=== PATIENT | male | born 1975 | race Caucasian/White ===

== ENCOUNTER 2023-04-05 10:18 | Outpatient (AMB) | payer OTHER, SELFPAY ==
[2023-04-05 10:27] VITALS: BP 129/84; PULSE 70; BMI 25.8
--- NOTE | 2023-04-05 10:27 | A.OFFVIS_ITS ---
Intake Vital Signs 04/05/23 10:27 Height 5 ft 5 in Weight 155 lb BMI 25.8 BP 129/84 Blood Pressure Location Rt brachial Position Sitting Pulse 70 Intake Visit Reasons: Lipoma of neck Intake Note: Patient here for growth on post neck. Has been enlarging for the past 7yrs. Recently moved to area from [place]. C/o discomfort around neck and shoulder muscles . 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 He has had this approximately 6 years time. His increasing size, become more symptomatic. He wished to have removed. Patient presents here with his significant other. He has no other such lesions elsewhere. Incidentally has a left base of left index finger palmar aspects cyst Chart was reviewed patient evaluated [facility] Medical History (Updated 04/05/23 @ 10:30 by NAREN Austin) Hernia Social History (Updated 04/05/23 @ 10:31 by NAREN Austin) Alcohol intake: never Tobacco use type: Cigarette Cigarettes Per Day: 10 Physical Exam Vital Signs: Last Vital Signs Pulse 70 04/05/23 10:27 BP 129/84 04/05/23 10:27 BMI result Body Mass Index 25.8 Neck Other: Posterior midline neck approximately 7 x 5 cm mass consistent with either a massive GI lipoma or sebaceous cyst. No cervical periclavicular adenopathy. 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 All questions were answered. Arrangements will be made for this. Coding Level of Care Code New Pt Level 5 (86054) Diagnoses Lipomatosis gigantea E88.2
== END 2023-04-05 11:04 | disposition home or self-care (01) ==
PROVIDERS: PCP Internal Medicine; Referring Provider Internal Medicine; Visit Provider Surgery
DX: E88.2 Lipomatosis, not elsewhere classified (principal)
CPT/HCPCS: 99204

== ENCOUNTER → 2023-04-05 10:18 | Outpatient (BNVA) | payer OTHER, SELFPAY | PROVIDERS: PCP Internal Medicine; Referring Provider Internal Medicine; Visit Provider Surgery | DX: E88.2 Lipomatosis, not elsewhere classified (principal) | CPT/HCPCS: 99202 ==

== ENCOUNTER 2023-05-11 06:50 | Day surgery (SDC) | payer OTHER, SELFPAY ==
[2023-04-29 13:40] VITALS: BMI 25.8
--- NOTE | 2023-05-10 14:27 | MHC.SHP ---
Pre-Procedural Eval Section A Date of Service: 05/10/23 The patient is an INPATIENT: No Changes since office visit: No Cold of Flu in the past 2 weeks, No New Medical Problems, No Changes in Medication and No Patient answered all questions The History & Physical has been completed within 30 days and I have reviewed it.: Yes Section B Chief Complaint: Lipomatosis, not elsewhere classified Allergies: Allergies Allergy/AdvReac Type Severity Reaction Status Date / Time No Known Allergies Allergy Verified 04/05/23 10:29 Plan I have reviewed the history and physical and performed a pertinent physical examination on my patient. No changes have occurred unless specified. Time Spent With Patient Time: Total time managing care of this patient today ____ minutes.
[2023-05-11 07:16] VITALS: BP 121/77; PULSE 64; RESP 16; TEMP 37; O2SAT 96
--- NOTE | 2023-05-11 08:20 | HO.ANESPROP2 ---
HPI - Anesthesia Eval Consult details Narrative: 47 M for excision of neck mass smoker ,GERD PMFSH Active Problems Active Problems: All Active Problems (Updated 04/29/23 @ 13:33 by Ava Urban RN) Lipomatosis gigantea (Acute) Past Medical History Medical History (Updated 05/11/23 @ 07:08 by Abimbola Montes RN) Arrhythmia GERD (gastroesophageal reflux disease) Torn rotator cuff ADD (attention deficit disorder) PTSD (post-traumatic stress disorder) Anxiety Depression Hernia Functional capacity: independent ambulation Family History Family history of problems with anesthesia: No Surgical History Surgical History (Updated 04/29/23 @ 13:33 by Ava Urban RN) Hx of hernia repair History of Problems with Anesthesia: No Social History Social History (Updated 04/29/23 @ 13:34 by Ava Urban RN) Alcohol intake: never Patient Tobacco Use Status: Current everyday Tobacco user Tobacco use type: Cigarette Cigarette Packs Per Day: 0.5 Cigarettes Per Day: 10.0 Substance Use Type: Marijuana Meds Allergies Allergy/AdvReac Type Severity Reaction Status Date / Time No Known Allergies Allergy Verified 04/05/23 10:29 Home Medications Medication Instructions Recorded Confirmed Last Taken Type gabapentin 100 mg capsule 100 mg PO BEDTIME 04/05/23 04/29/23 05/11/23 History omeprazole 20 mg capsule,delayed 20 mg PO BID 04/05/23 04/29/23 05/11/23 History release Exam Exam Date and Time: May 11, 2023 0820 Height,Weight and Vital Signs: Height 5 ft 5 in Weight 70.307 kg Last Vital Signs Temp 98.6 F 05/11/23 07:16 Pulse 64 05/11/23 07:16 Resp 16 05/11/23 07:16 BP 121/77 05/11/23 07:16 Pulse Ox 96 05/11/23 07:16 O2 Del Method Room Air 05/11/23 07:16 Airway Mallampati Class: III Neck ROM: Full Loose/Missing/Broken Teeth: Yes (poor dentition , multiple chipped and missing ) Assessment and Plan Assessment Anesthesia Assessment: Anesthesia Plan Discussed and Chart Reviewed Final Anesthetic Review Family History of Problems with Anesthesia: No History of Problems with Anesthesia: No NPO: Yes ASA Class: II Final Preanesthetic Review: Meds/Allgs Chart Reviewed, Consent Obtained/Reviewed and Anes Risks/Benef Reviewed Patient Risk: Intermediate Procedure Risk: Intermediate Anesthetic Plan Anesthetic Plan: MAC: and Agree w/ Assess. and Plan Disposition: Standard PACU
--- NOTE | 2023-05-11 09:19 | W.PM.OPN ---
Operative Note Operative Note Date of Service: 05/11/23 Narrative: Preoperative diagnosis: [] Left posterior neck soft tissue mass Postop diagnosis; same Procedure [] wide local excision left posterior neck Surgeon: [] Keo Line Maintenance Supervisor: [] Type of Anesthesia: [] Mass Indication for surgery: [] Final specimen measured approximately 5 x 3 cm consistent with a large deep posterior left neck lipoma. Findings: [] Patient brought to the operating room, placed on operative table in supine position, after adequate level of MAC anesthesia was induced, patient was placed in the right lateral decubitus position. Left posterior neck was prepped and draped in usual sterile fashion. Proposed incision site was infiltrated with 1% lidocaine/0.5% Marcaine. A transverse incision was made over the mass in question and carried down through skin, subcutaneous tissue, cervical fascia where a large multilobulated mass consistent with a lipoma was uneventfully excised from the surrounding soft tissues using combination of blunt, sharp, and Bovie dissection. Specimen was sent to pathology. Wound was irrigated, and secured hemostasis. The wound Was closed in the following manner; interrupted inverted dermal 3-0 Vicryl sutures followed by Steri-Strips and sterile dressings were applied. Sponge, needle, instrument counts reported correct. Patient tolerated the procedure well and emerged anesthesia stable condition. EBL minimal
[2023-05-11 09:20] VITALS: BP 98/65; PULSE 65; RESP 16; TEMP 36.6; O2SAT 96
[2023-05-11 09:35] VITALS: BP 106/67; PULSE 66; RESP 16; TEMP 36.6; O2SAT 98
[2023-05-11 09:50] VITALS: BP 117/85; PULSE 67; RESP 20; TEMP 36.6; O2SAT 99
== END 2023-05-11 10:50 | disposition home or self-care (01) ==
PROVIDERS: PCP Internal Medicine; Visit Provider Surgery
PROC: (CPT 21552; principal; 2023-05-11 08:40)
DX: E88.2 Lipomatosis, not elsewhere classified (principal); I10 Essential (primary) hypertension; F98.8 Other specified behavioral and emotional disorders with onset usually occurring in childhood and adolescence; F41.9 Anxiety disorder, unspecified; F43.10 Post-traumatic stress disorder, unspecified; K21.9 Gastro-esophageal reflux disease without esophagitis; Z79.899 Other long term (current) drug therapy; Z98.890 Other specified postprocedural states; F17.210 Nicotine dependence, cigarettes, uncomplicated
CPT/HCPCS: 21552; 88304; 88307; 88341; 88342; J0690; J1100; J1170; J2250; J2371; J2405; J2795

== ENCOUNTER → 2023-05-11 06:50 | Outpatient (BNV) | payer OTHER, SELFPAY | PROVIDERS: PCP Internal Medicine; Visit Provider Surgery | DX: D17.0 Benign lipomatous neoplasm of skin and subcutaneous tissue of head, face and neck (principal) | CPT/HCPCS: 21552 ==

== ENCOUNTER 2023-05-23 10:58 | Outpatient (AMB) | payer OTHER, SELFPAY ==
[2023-05-23 11:04] VITALS: BP 126/80; PULSE 79
--- NOTE | 2023-05-23 11:04 | A.OFFVIS_ITS ---
Intake Vital Signs 05/23/23 11:04 Weight 157 lb BP 126/80 Blood Pressure Location Lt brachial Position Sitting Pulse 79 Intake Visit Reasons: S/p giant posterior neck mass Intake Note: Patient here s/p exc post neck. Reports incision healing well. C/o tenderness with touch. Denies bleeding or oozing. 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 He has no wound issues or complaints. Minimal discomfort. Pathology is benign ON LICENSE OF [facility] Medical History Arrhythmia GERD (gastroesophageal reflux disease) Torn rotator cuff ADD (attention deficit disorder) PTSD (post-traumatic stress disorder) Anxiety Depression Hernia Surgical History Lipomatosis gigantea (05/11/23) Hx of hernia repair Social History Alcohol intake: never Patient Tobacco Use Status: Current everyday Tobacco user Tobacco use type: Cigarette Cigarette Packs Per Day: 0.5 Cigarettes Per Day: 10.0 Substance Use Type: Marijuana Physical Exam Vital Signs: Last Vital Signs Pulse 79 05/23/23 11:04 BP 126/80 05/23/23 11:04 Neck Other: Incision is clean dry and intact. Patient has accumulated a small seroma which is expected. Under sterile technique, aspiration approximately 6 cc of serous fluid was retrieved. Dressing was applied. Patient tolerated procedure well. Assessment & Plan Assessment & Plan (1) Lipomatosis gigantea: Onset Date: 05/11/23 Comment: Dr. Maynor Crowley Excision Dx: Spindle cell lipoma Code(s): E88.2 - Lipomatosis, not elsewhere classified Plan Patient has been given local instructions, and will follow-up p.r.n.. Note for work for 2 weeks light duty will be provided. Coding Level of Care Code Global (28382) Diagnoses Lipomatosis gigantea E88.2
== END 2023-05-23 11:13 | disposition home or self-care (01) ==
PROVIDERS: PCP Internal Medicine; Visit Provider Surgery
DX: E88.2 Lipomatosis, not elsewhere classified (principal)
CPT/HCPCS: 99024

== ENCOUNTER → 2023-05-23 10:58 | Outpatient (BNVA) | payer OTHER, SELFPAY | PROVIDERS: PCP Internal Medicine; Visit Provider Surgery ==